=== PATIENT | female | born 1990 ===

== ENCOUNTER 2022-03-24 04:38 | Day surgery (SDC) | payer OTHER ==
[2022-03-23 12:54] VITALS: BMI 15.3
[2022-03-24] MEDS ORDERED: MIDAZOLAM HCL 2 MG/2 ML SINGLE DOSE VIAL ONE (12:52)
[2022-03-24] MEDS ORDERED: FENTANYL CITRATE/PF 50 MCG/ML VIAL ONE (12:53)
[2022-03-24] MEDS ORDERED: PROPOFOL 20 ML ONE (12:57)
[2022-03-24] MEDS ORDERED: FENTANYL CITRATE/PF 50 MCG/ML VIAL IVPUSH PRN (13:38)
[2022-03-24] MEDS ORDERED: ONDANSETRON 4 MG/2 ML VIAL IVPUSH PRN (13:38)
[2022-03-24] MEDS ORDERED: oxyCODONE HCL 5 MG TABLET PO PRN (13:38)
[2022-03-24] MEDS ORDERED: PROMETHAZINE HCL 25 MG/1 ML VIAL IVPUSH PRN (13:38)
[2022-03-24] MEDS ORDERED: LACTATED RINGERS SOLUTION 1,000 ML IV SCH (13:45)
[2022-03-24 15:03] VITALS: RESP 18
[2022-03-24 15:25] VITALS: BP 103/64; PULSE 66; TEMP 97.4
== END 2022-03-24 15:27 | disposition home or self-care (01) ==
LOC: JASU-SURG 04:38 → EDBD 04:38 → JASU-SURG 15:27
PROVIDERS: ATTEND Student in an Organized Health Care Education/Training Program
PROC: 0UBC7ZX Excision of Cervix, Via Natural or Artificial Opening, Diagnostic (ICD-10-PCS; principal; 2022-03-24 11:30)
DX: N87.0 Mild cervical dysplasia (principal)
CPT/HCPCS: 81025; 88305-TC; 88307-TC; 94760